=== PATIENT | female | born 1935 | race Caucasian/White ===

== ENCOUNTER 2023-02-01 13:28 | Inpatient (IN) | payer OTHER ==
[2023-02-01] MEDS ORDERED: SODIUM CHLORIDE 0.9% 500 ML INFUS.BAG IV ONE ×2 (16:24→20:36)
[2023-02-01] MEDS ORDERED: CEFEPIME HCL 2 GM VIAL (RESTRICTED TO ID) IVPB ONE (17:08)
[2023-02-01] MEDS ORDERED: dilTIAZem HCL 50 MG/10 ML - 10 ML VIAL IVPUSH ONE ×2 (19:20→20:35)
[2023-02-01] MEDS ORDERED: dilTIAZem HCL 50 MG/10 ML - 10 ML VIAL ONE (19:38)
[2023-02-01] MEDS ORDERED: CEFEPIME 2 GM/100 ML BAG IVPB ONE (19:38)
[2023-02-01 19:39] LABS: HEMOGLOBIN 15.7 GM/dL (10.7-15.3); MCH 29.5 pg (25.7-33.7); MCHC 31.4 g/dl (32.0-36.0); MEAN CELL VOLUME 93.7 fl (80-96); MEAN PLT VOLUME 8.7 fl (7.5-11.1); PLATELET COUNT 227 10^3/uL (134-434); RBC 5.34 M/mm3 (3.60-5.2); RDW 16.2 % (11.6-15.6); WHITE BLOOD COUNT 20.8 K/mm3 (4.0-10.0)
[2023-02-01 19:46] LABS: LACTIC ACID 2.4 mmol/L (0.4-2.0)
[2023-02-01 19:52] LABS: INR 1.35 (0.83-1.09); PROTHROMBIN TIME (PATIENT) 15.6 SEC (9.7-13.0)
[2023-02-01 19:59] LABS: CHLORIDE 131 mmol/L (98-107); POTASSIUM 3.6 mmol/L (3.5-5.1)
[2023-02-01 20:01] LABS: ALBUMIN 2.7 g/dl (3.4-5.0); BLOOD UREA NITROGEN 98.4 mg/dL (7-18); CALCIUM 9.4 mg/dL (8.5-10.1); CO2 25 mmol/L (21-32); GLUCOSE,RANDOM 98 mg/dL (74-106); MAGNESIUM 3.3 mg/dL (1.8-2.4)
[2023-02-01 20:04] LABS: PHOSPHOROUS 2.5 mg/dL (2.5-4.9); SGOT/AST 68 U/L (15-37); SGPT/ALT 89 U/L (13-61)
[2023-02-01 20:05] LABS: CREATININE 3.2 mg/dL (0.55-1.3)
[2023-02-01 20:06] LABS: BILIRUBIN,TOTAL 0.5 mg/dL (0.2-1); TOT PROT 7.6 g/dl (6.4-8.2)
[2023-02-01 20:07] LABS: ALK PHOS 151 U/L (45-117)
[2023-02-01 20:24] LABS: ANION GAP 6 mmol/L (4-13); SODIUM 162 mmol/L (136-145)
[2023-02-01 20:52] LABS: EPI CELLS >36 /uL (0-25.1); HYALINE CASTS 4 /uL (0-3.1); URINE APPEARANCE TURBID; URINE BILIRUBIN NEGATIVE (NEGATIVE); URINE COLOR YELLOW; URINE GLUCOSE (UA) NEGATIVE (NEGATIVE); URINE KETONE NEGATIVE (NEGATIVE); URINE LEUK ESTERASE 3+ (NEGATIVE); URINE NITRITE POSITIVE (NEGATIVE); URINE PROTEIN 1+ (NEGATIVE); URINE RBC 63 /uL (0-23.9); URINE UROBILINOGEN 0.2 mg/dL (0.2-1.0); URINE WBC 5547 /uL (0-25.8)
[2023-02-01 21:23] LABS: ANISOCYTOSIS 1+; MACROCYTOSIS 1+; OVALOCYTE 1+
[2023-02-01] MEDS: SODIUM CHLORIDE 0.45% 500 ML IV SCH (21:28)
[2023-02-01 22:00] LABS: YEAST NEGATIVE (NEGATIVE)
[2023-02-02] MEDS ORDERED: SODIUM CHLORIDE 0.45% 1,000 ML IV SCH (02:00)
[2023-02-02] MEDS ORDERED: CEFEPIME HCL 2 GM VIAL (RESTRICTED TO ID) IVPB SCH (02:00)
[2023-02-02] MEDS: LORazepam 0.5 MG TABLET PO SCH ×2 (03:15→09:33)
[2023-02-02] MEDS ORDERED: AZTREONAM 2 GM in DEXTROSE 5%-WATER 100 ML IVPB SCH (06:00)
[2023-02-02] MEDS ORDERED: AZTREONAM 2 GM in DEXTROSE 5%-WATER 100 ML IVPB ONE (06:00)
[2023-02-02] MEDS ORDERED: AZTREONAM 2 GM VIAL (RESTRICTED TO ID) ONE (06:42)
[2023-02-02] MEDS ORDERED: HEPARIN NA (PORCINE) 5,000 UNITS/ML 1ML VIAL ONE (06:42)
[2023-02-02] MEDS ORDERED: dilTIAZem HCL 30 MG TABLET ONE (06:42)
[2023-02-02] MEDS: dilTIAZem HCL 30 MG TABLET PO SCH ×3 (06:50→18:17)
[2023-02-02] MEDS: HEPARIN NA (PORCINE) 5,000 UNITS/ML 1ML VIAL SQ SCH ×3 (06:50→22:54)
[2023-02-02 09:20] LABS: CHLORIDE 134 mmol/L (98-107); POTASSIUM 4.2 mmol/L (3.5-5.1)
[2023-02-02] MEDS ORDERED: DOXYCYCLINE HYCLATE 100 MG VIAL ONE (09:20)
[2023-02-02] MEDS ORDERED: LORazepam 0.5 MG TABLET ONE (09:20)
[2023-02-02 09:33] LABS: CALCIUM 8.8 mg/dL (8.5-10.1)
[2023-02-02] MEDS: DOXYCYCLINE INJECTION 100 MG in DEXTROSE 5%-WATER 100 ML IVPB SCH ×2 (09:33→22:54)
[2023-02-02] MEDS: amLODIPine BESYLATE 5 MG TABLET (FP) PO SCH (09:33)
[2023-02-02 09:34] LABS: CO2 24 mmol/L (21-32); GLUCOSE,RANDOM 123 mg/dL (74-106); MAGNESIUM 3.3 mg/dL (1.8-2.4)
[2023-02-02 09:37] LABS: CREATININE 3.1 mg/dL (0.55-1.3); PHOSPHOROUS 3.2 mg/dL (2.5-4.9)
[2023-02-02 09:38] LABS: ANION GAP 6 mmol/L (4-13); SODIUM 164 mmol/L (136-145)
[2023-02-02] MEDS ORDERED: AZTREONAM 1 GM in DEXTROSE 5%-WATER - 50 ML IVPB SCH (12:00)
[2023-02-02] MEDS ORDERED: AZTREONAM 0.5 GM in DEXTROSE 5%-WATER - 50 ML IVPB SCH ×2 (13:00→19:00)
[2023-02-02 13:09] VITALS: BMI 30.1
[2023-02-02] MEDS: DEXTROSE 5%-WATER - 1,000 ML IV SCH (15:22)
[2023-02-02 16:00] LABS: BASO % 0.2 % (0-2.0); EOS % 0.9 % (0-4.5); HEMATOCRIT 53.9 % (32.4-45.2); HEMOGLOBIN 16.5 GM/dL (10.7-15.3); LYMPH % 5.3 % (8-40); MCH 29.5 pg (25.7-33.7); MCHC 30.7 g/dl (32.0-36.0); MEAN PLT VOLUME 8.9 fl (7.5-11.1); MONO % 4.7 % (3.8-10.2); NEUT % 88.9 % (42.8-82.8); PLATELET COUNT 168 10^3/uL (134-434); RBC 5.62 M/mm3 (3.60-5.2); RDW 16.3 % (11.6-15.6); WHITE BLOOD COUNT 17.8 K/mm3 (4.0-10.0)
[2023-02-02] MEDS: AZTREONAM 0.5 GM in DEXTROSE 5%-WATER - 50 ML IVPB SCH (20:19)
[2023-02-02] MEDS: SODIUM CHLORIDE 0.45% 500 ML IV SCH (21:49)
[2023-02-02] MEDS: MIRTAZAPINE 15 MG TABLET (FP) PO SCH (23:00)
[2023-02-02] MEDS: DONEPEZIL HCL 5 MG TABLET (FP) PO SCH (23:00)
[2023-02-03] MEDS: dilTIAZem HCL 30 MG TABLET PO SCH ×4 (01:08→18:52)
[2023-02-03] MEDS ORDERED: AZTREONAM 1 GM in DEXTROSE 5%-WATER - 50 ML IVPB SCH (02:00)
[2023-02-03] MEDS: HEPARIN NA (PORCINE) 5,000 UNITS/ML 1ML VIAL SQ SCH ×3 (06:48→21:54)
[2023-02-03] MEDS: AZTREONAM 0.5 GM in DEXTROSE 5%-WATER - 50 ML IVPB SCH ×2 (06:48→20:02)
[2023-02-03] MEDS: DEXTROSE 5%-WATER - 1,000 ML IV SCH ×2 (08:56→16:59)
[2023-02-03] MEDS: LORazepam 0.5 MG TABLET PO SCH (09:23)
[2023-02-03] MEDS: DOXYCYCLINE INJECTION 100 MG in DEXTROSE 5%-WATER 100 ML IVPB SCH ×2 (09:27→21:54)
[2023-02-03] MEDS: amLODIPine BESYLATE 5 MG TABLET (FP) PO SCH (09:27)
[2023-02-03 16:00] LABS: POTASSIUM 3.7 mmol/L (3.5-5.1)
[2023-02-03 16:02] LABS: CALCIUM 8.1 mg/dL (8.5-10.1)
[2023-02-03 16:03] LABS: BLOOD UREA NITROGEN 89.6 mg/dL (7-18)
[2023-02-03 16:07] LABS: BILIRUBIN,TOTAL 0.3 mg/dL (0.2-1); TOT PROT 5.6 g/dl (6.4-8.2)
[2023-02-03 16:10] LABS: ALBUMIN 2.1 g/dl (3.4-5.0)
[2023-02-03] MEDS: DONEPEZIL HCL 5 MG TABLET (FP) PO SCH (21:55)
[2023-02-03] MEDS: MIRTAZAPINE 15 MG TABLET (FP) PO SCH (21:55)
[2023-02-04] MEDS: DEXTROSE 5%-WATER - 1,000 ML IV SCH ×2 (00:47→17:51)
[2023-02-04] MEDS: dilTIAZem HCL 30 MG TABLET PO SCH ×4 (00:58→17:52)
[2023-02-04] MEDS: HEPARIN NA (PORCINE) 5,000 UNITS/ML 1ML VIAL SQ SCH ×3 (05:38→22:37)
[2023-02-04] MEDS: AZTREONAM 0.5 GM in DEXTROSE 5%-WATER - 50 ML IVPB SCH ×2 (08:50→19:03)
[2023-02-04] MEDS: DOXYCYCLINE INJECTION 100 MG in DEXTROSE 5%-WATER 100 ML IVPB SCH ×2 (09:55→22:38)
[2023-02-04] MEDS: LORazepam 0.5 MG TABLET PO SCH (09:56)
[2023-02-04] MEDS: amLODIPine BESYLATE 5 MG TABLET (FP) PO SCH (09:57)
[2023-02-04] MEDS: SILVER SULFADIAZINE 1% TOP CREAM 50 GM JAR TP SCH (09:57)
[2023-02-04 10:24] LABS: HEMATOCRIT 43.6 % (32.4-45.2); HEMOGLOBIN 13.8 GM/dL (10.7-15.3); MCH 29.6 pg (25.7-33.7); MCHC 31.7 g/dl (32.0-36.0); MEAN CELL VOLUME 93.3 fl (80-96); MEAN PLT VOLUME 8.3 fl (7.5-11.1); PLATELET COUNT 195 10^3/uL (134-434); RBC 4.67 M/mm3 (3.60-5.2); RDW 15.8 % (11.6-15.6); WHITE BLOOD COUNT 15.6 K/mm3 (4.0-10.0)
[2023-02-04 13:18] LABS: ALBUMIN 2.1 g/dl (3.4-5.0); BILIRUBIN,TOTAL 0.6 mg/dL (0.2-1); BLOOD UREA NITROGEN 79.6 mg/dL (7-18); CALCIUM 8.6 mg/dL (8.5-10.1); CREATININE 2.8 mg/dL (0.55-1.3); POTASSIUM 3.5 mmol/L (3.5-5.1); TOT PROT 5.8 g/dl (6.4-8.2)
[2023-02-04 13:58] VITALS: RESP 18
[2023-02-04] MEDS: DONEPEZIL HCL 5 MG TABLET (FP) PO SCH (22:37)
[2023-02-04] MEDS: MIRTAZAPINE 15 MG TABLET (FP) PO SCH (22:37)
[2023-02-05] MEDS: AZTREONAM 0.5 GM in DEXTROSE 5%-WATER - 50 ML IVPB SCH (06:08)
[2023-02-05] MEDS: HEPARIN NA (PORCINE) 5,000 UNITS/ML 1ML VIAL SQ SCH ×2 (06:09→13:04)
[2023-02-05] MEDS: dilTIAZem HCL 30 MG TABLET PO SCH ×2 (06:09)
[2023-02-05] MEDS: DOXYCYCLINE INJECTION 100 MG in DEXTROSE 5%-WATER 100 ML IVPB SCH (10:19)
[2023-02-05] MEDS: LORazepam 0.5 MG TABLET PO SCH (10:20)
[2023-02-05] MEDS: SILVER SULFADIAZINE 1% TOP CREAM 50 GM JAR TP SCH (10:21)
[2023-02-05 12:40] VITALS: BP 125/73; PULSE 85; TEMP 98.6
[2023-02-05] MEDS ORDERED: DOXYCYCLINE MONOHYDRATE 25 MG/5 ML SUSPENSION PO SCH (18:00)
== END 2023-02-05 14:11 | DRG 689 ==
LOC: JER 13:28 → JERBED 15:02 → J6S 02-02 12:00
PROVIDERS: ADMIT Internal Medicine; ATTEND Family Medicine
DX: N39.0 Urinary tract infection, site not specified (principal); J18.9 Pneumonia, unspecified organism; N17.9 Acute kidney failure, unspecified; E87.0 Hyperosmolality and hypernatremia; E87.20 Acidosis, unspecified; L03.114 Cellulitis of left upper limb; I48.91 Unspecified atrial fibrillation; N18.9 Chronic kidney disease, unspecified; J44.9 Chronic obstructive pulmonary disease, unspecified; F03.90 Unspecified dementia, unspecified severity, without behavioral disturbance, psychotic disturbance, mood disturbance, and anxiety; D72.829 Elevated white blood cell count, unspecified; E86.0 Dehydration; B96.20 Unspecified Escherichia coli [E. coli] as the cause of diseases classified elsewhere; I12.9 Hypertensive chronic kidney disease with stage 1 through stage 4 chronic kidney disease, or unspecified chronic kidney disease
CPT/HCPCS: 0241U-QW; 36415; 71045-TC-FY; 74176-TC; 80048; 80053; 81003; 82550; 82553; 83605; 83735; 84100; 84484; 85025; 85027; 85610; 85730; 86850; 86900; 86901; 87040; 87086; 87186; 93005; 93010; 97161-GP; 99285-25; J1644